=== PATIENT | female | born 1975 | race Hispanic/Latino ===

== ENCOUNTER 2017-04-17 14:56 | Inpatient (IN) | payer SELFPAY ==
[~2017-04-17] VITALS: Ht 165.1 cm; Wt 77.1 kg
[~2017-04-17 14:56] MED LIST: IBUP-2070 PO
[2017-04-17] MEDS ORDERED: IOPAMIDOL-370 75 ML VIAL IV ONE (15:44)
[2017-04-17] MEDS ORDERED: TETANUS/DIPHTHERIA TOXOID [ADULT] 0.5 ML VIAL IM ONE (16:46)
[2017-04-17 17:27] LABS: BASOPHILS % (AUTO) 0.3 % (0.0-5.0); EOSINOPHILS % (AUTO) 2.2 % (0.0-8.0); HEMATOCRIT 28.4 % (36-48); LYMPHOCYTES % (AUTO) 25.2 % (21.0-51.0); MEAN CORPUSCULAR HEMOGLOBIN 29.3 pg (27.0-33.0); MEAN CORPUSCULAR HGB CONC 34.5 g/dL (32.0-36.0); MEAN CORPUSCULAR VOLUME 84.8 fL (79-99); MONOCYTES % (AUTO) 8.4 % (3.0-13.0); NEUTROPHILS % (AUTO) 63.9 % (40.0-77.0); PLATELET COUNT (AUTO) 151 K/uL (130-400); RED BLOOD CELL COUNT(AUTO) 3.35 MIL/uL (4.00-5.50); RED CELL DISTRIBUTION WIDTH 14.4 % (11.0-15.5); WHITE BLOOD COUNT (AUTO) 5.4 K/uL (4.8-10.8)
[2017-04-17 17:28] LABS: APPEARANCE,URINE Clear (CLEAR); BILIRUBIN,URINE Negative (NEGATIVE); COLOR,URINE Dark Yellow (YELLOW); GLUCOSE, URINE (UA) Negative (NEGATIVE); KETONES,URINE Negative (NEGATIVE); LEUKOCYTE ESTERASE ,URINE Moderate (NEGATIVE); NITRATE,URINE Negative (NEGATIVE); OCCULT BLOOD,URINE Negative (NEGATIVE); PH,URINE 5.5 (5.0-8.0); PROTEIN,URINE Negative (NEGATIVE)
[2017-04-17 17:33] LABS: AMPHET/METH SCREEN,URINE NEGATIVE (NEGATIVE); BARBITURATE SCREEN, URINE NEGATIVE (NEGATIVE); BENZODIAZEPINES SCREEN,URINE NEGATIVE (NEGATIVE); CANNABINOID SCREEN,URINE NEGATIVE (NEGATIVE); COCAINE SCREEN,URINE POSITIVE (NEGATIVE); OPIATE SCREEN,URINE NEGATIVE (NEGATIVE); PHENCYCLIDINE SCREEN,URINE NEGATIVE (NEGATIVE)
[2017-04-17 17:36] LABS: BACTERIA,URINE Few /HPF (None Seen); MUCUS,URINE Few LPF (None Seen); RBC,URINE 0-1 /HPF (0-1); SQUAMOUS EPITHELIAL CELL,UR Few /LPF (0-2); TRICHOMONAS,URINE Rare /LPF (None Seen)
[2017-04-17 17:40] LABS: CREATININE 0.7 mg/dL (0.5-1.5); POTASSIUM 3.2 mmol/L (3.5-5.1)
[2017-04-17 17:44] LABS: ALBUMIN 3.2 g/dL (3.5-5.0); BILIRUBIN,TOTAL 0.6 mg/dL (0.2-1.0); TOTAL PROTEIN, SERUM 6.8 g/dL (6.0-8.3)
[2017-04-17] MEDS ORDERED: MORPHINE SULFATE 4 MG/1ML SYG ONE ×2 (17:58→21:43)
[2017-04-17] MEDS ORDERED: ONDANSETRON HCL 4 MG/2 ML VIAL ONE (17:58)
[2017-04-18] MEDS ORDERED: MORPHINE SULFATE 4 MG/1ML SYG ONE ×2 (02:40→07:59)
[2017-04-18 13:06] VITALS: BP 115/71
[2017-04-18] MEDS ORDERED: ACETAMINOPHEN 325 MG TAB PO PRN ×2 (14:45→17:45)
[2017-04-18] MEDS ORDERED: KETOROLAC TROMETHAMINE 30MG/ML ONE (14:52)
[2017-04-18] MEDS: KETOROLAC TROMETHAMINE 30MG/ML IM PRN (15:09)
[2017-04-18 17:30] VITALS: BP 96/67
[2017-04-18] MEDS ORDERED: ONDANSETRON HCL 4 MG/2 ML VIAL IVP PRN (17:45)
[2017-04-18] MEDS: SODIUM CHLORIDE 0.9% 1000ML 1,000 ML IV SCH (18:02)
[2017-04-18 19:00] VITALS: BP 110/59
[2017-04-18] MEDS: MORPHINE SULFATE 4 MG/1ML SYG IVP PRN (20:00)
[2017-04-18 23:00] VITALS: BP 92/55
[2017-04-19] MEDS: MORPHINE SULFATE 4 MG/1ML SYG IVP PRN ×3 (01:05→21:54)
[2017-04-19] MEDS: SODIUM CHLORIDE 0.9% 1000ML 1,000 ML IV SCH ×4 (01:09→19:52)
[2017-04-19 03:00] VITALS: BP 109/67
[2017-04-19] MEDS: KETOROLAC TROMETHAMINE 30MG/ML IM PRN (04:15)
[2017-04-19 07:04] VITALS: BP 118/67
[2017-04-19] MEDS: ZOSYN 3.375GM+NS 50ML 50 ML IV SCH ×2 (09:26→18:01)
[2017-04-19 11:00] VITALS: BP 101/41
[2017-04-19 16:00] VITALS: BP 115/60
[2017-04-19] MEDS ORDERED: OXYCODONE/ACETAMIN 5/325MG TAB PO PRN (17:15)
[2017-04-19 19:53] VITALS: BP 102/58
[2017-04-20 00:15] VITALS: BP 97/54
[2017-04-20] MEDS: ZOSYN 3.375GM+NS 50ML 50 ML IV SCH ×2 (00:57→08:30)
[2017-04-20] MEDS: SODIUM CHLORIDE 0.9% 1000ML 1,000 ML IV SCH (03:05)
[2017-04-20] MEDS: MORPHINE SULFATE 4 MG/1ML SYG IVP PRN ×3 (03:34→12:00)
[2017-04-20 04:37] VITALS: BP 95/54
[2017-04-20 07:48] VITALS: BP 120/66
[2017-04-20 11:50] VITALS: BP 138/91
== END 2017-04-20 13:40 | disposition home or self-care (01) | DRG 563 ==
LOC: EDH 14:56 → EDHIP 14:57 → OBSVTOIN 14:57 → 4BH 04-18 16:55
PROVIDERS: ADMIT Surgery; ATTEND Surgery
DX: S92.315A Nondisplaced fracture of first metatarsal bone, left foot, initial encounter for closed fracture (principal); S01.81XA Laceration without foreign body of other part of head, initial encounter; S80.02XA Contusion of left knee, initial encounter; Z28.21 Immunization not carried out because of patient refusal; X58.XXXA Exposure to other specified factors, initial encounter; Y93.89 Activity, other specified; Y92.488 Other paved roadways as the place of occurrence of the external cause; Y99.8 Other external cause status
CPT/HCPCS: 36415; 70450; 70486; 71260; 72125; 73030; 73221; 73560; 73590; 73630; 73700; 74177; 80053; 80305; 81001; 84703; 85025; 90714; 99291; G0390; G0480; J1885; J2270; J2405; J2543; J7030; Q9967

== ENCOUNTER 2019-05-01 16:20 | Emergency (ER) | payer SELFPAY ==
[2019-05-01] MEDS ORDERED: TETANUS/DIPHTHERIA TOXOID [ADULT] 0.5 ML VIAL IM ONE (16:53)
== END 2019-05-01 17:26 | disposition home or self-care (01) ==
LOC: EDH 16:20
DX: S61.512A Laceration without foreign body of left wrist, initial encounter (principal); S51.812A Laceration without foreign body of left forearm, initial encounter; F32.9 Major depressive disorder, single episode, unspecified; Z72.0 Tobacco use; X83.8XXA Intentional self-harm by other specified means, initial encounter; Y93.89 Activity, other specified; Y92.89 Other specified places as the place of occurrence of the external cause; Y99.8 Other external cause status
CPT/HCPCS: 90471; 90714

== ENCOUNTER 2024-04-05 11:29 | Emergency (ER) | payer BC ==
[~2024-04-05] VITALS: Ht 165.1 cm; Wt 92.1 kg
--- NOTE | 2024-04-05 11:44 | ERN ---
ED Note History of Present Illness Stated Complaint: LAC Chief Complaint: Laceration/Avulsion Time Seen by MD: 11:38 Dictation: PATIENT IS A 49-YEAR-OLD FEMALE HERE WITH HER WITH COMPLAINTS OF A SELF- INFLICTED LACERATION TO THE LEFT MEDIAL FOREARM ONSET WAS ON 04/02 SHE STATES IT THE TIME SHE WAS SUICIDAL HOWEVER THAT IS OVER NOW. STATES SHE IS NOT DEPRESSED SHE IS JUST SCARED AND DID NOT WANT TO GO TO THE HOSPITAL. NEUROVASCULAR CMS INTACT TO THE DISTAL LEFT ARM. THE WOUND IS DOWN TO THE SUBCU TANEOUS AREA, IS GRANULATING BY SECONDARY INTENTION AND UNABLE TO REPAIR AT THIS TIME. PATIENT AND HER WERE MADE AWARE THAT IT IS TOO LATE TO DO ANY REPAIRS. LAST TETANUS SHOT IS UNKNOWN SHE IS NOT A DIABETIC. Allergies: Coded Allergies: No Known Drug Allergies (Unverified Allergy, Unknown, 04/10/16) Home Meds Unable to Obtain Active Prescriptions or Reported Meds Past Medical History History: Not Applicable RN Note Reviewed/Agreed w/PFSH: Yes Review of System Dictation CONSTITUTIONAL: NEGATIVE EXCEPT FOR HPI HEAD/FACE: NEGATIVE EXCEPT FOR HPI EENT: NEGATIVE EXCEPT FOR HPI RESPIRATORY: NEGATIVE EXCEPT FOR HPI GASTROINTESTINAL/ABDOMINAL: NEGATIVE EXCEPT FOR HPI GENITOURINARY: NEGATIVE EXCEPT FOR HPI MUSCULOSKELETAL: NEGATIVE EXCEPT FOR HPI INTEGUMENTARY: NEGATIVE EXCEPT FOR HPI LACERATION TO LEFT MEDIAL FOREARM NEUROLOGICAL/PSYCH: NEGATIVE EXCEPT FOR HPI HEMATOLOGIC/LYMPHATIC: NEGATIVE EXCEPT FOR HPI ALL SYSTEMS NEGATIVE, EXCEPT NOTED ABOVE. 13 POINT REVIEW OF SYSTEMS ASSESSED AND ALL NEGATIVE EXCEPT FOR ABOVE. Physical Exam Dictation VITAL SIGNS REVIEWED GENERAL APPEARANCE: ALERT, ORIENTED X 3, MILD ACUTE DISTRESS, WELL DEVELOPED, NOURISHED. HEAD AND FACE: NON-TRAUMATIC. EYES: PERRL, PINK CONJUNCTIVAS, EYELID NO TRAUMA, ANTERIOR CHAMBER WITH ARCUS SENILIS. EARS: PINNAS INTACT AND NO SIGNS OF TRAUMA OR ERYTHEMA EAR CANALS CLEAR AND NO DISCHARGE TM NO ERYTHEMA NOSE: NO DISCHARGE, NO BLEEDING. OROPHARYNX: MOUTH NORMAL, TONGUE PINK, PHARYNX CLEAR,NO ERYTHEMA, TONSILS NO EXUDATES, NO ABSCESSES NOTED, MUCOUS MEMBRANE MOIST NECK: SUPPLE, NON-TENDER, NO THYROMEGALY, NO MASSES, NO JVD, NO BRUITS BREAST:DEFERRED CHEST:NO TENDERNESS, NO CREPITUS, NO PARADOXICAL MOVEMENT, NO RETRACTIONS LUNGS:CLEAR, WELL-VENTILATED, SYMMETRIC, NO RALES, NO WHEEZING, NO RHONCHI, NO STRIDOR, GOOD BREATH SOUNDS BILATERALLY HEART: REGULAR RATE, REGULAR RHYTHM, NO MURMUR, NO GALLOPS VASCULAR: NO PERIPHERAL EDEMA, ABDOMEN: SOFT, POSITIVE BOWEL S SHIT MIN RECTAL: DEFERRED GENITAL: DEFERRED NEUROLOGICAL: NORMAL SPEECH, MOTOR FUNCTION INTACT, SENSORY FUNCTION INTACT MUSCULOSKELETAL: NECK NONTENDER, FULL RANGE OF MOTION, BACK NONTENDER, FULL RANGE OF MOTION, EXTREMITIES: DISTAL NEUROVASCULAR CMS INTACT LEFT ARM. SKIN: COLOR PINK, 7.5 CM LACERATION TO LEFT MEDIAL FOREARM. WOUND BED IS DRY EDGES HER CURLING AND GRANULATING BY SECONDARY INTENTION LYMPHATIC: DEFERRED Results (Laboratory/Radiology) Labs Reviewed?: Yes ED Course ED Course Orders Procedure Category Date Status Time Hydrocodone/Apap PHA 04/05/24 Verified 5/325 (Ione 5/325mg) 12:00 Tetanus,Diphtheria PHA 04/05/24 Verified Tox [Adult] (Diphther 12:00 Clindamycin 150mg Cap PHA 04/05/24 Verified (Cleocin 150mg Cap 12:00 DX & DISP Departure Condition: Stable Scripts Unable to Obtain Active Prescriptions or Reported Meds Referrals: MAGDALENA SALAZAR (PCP) HARINI LAURA NP Apr 05, 2024 11:44
[2024-04-05 11:50] VITALS: BP 164/81; PULSE 87; RESP 20; TEMP 97.8; O2SAT 98
[2024-04-05] MEDS ORDERED: HYDROcodone/APAP 5/325 1 TAB TABLET PO ONE (12:00)
[2024-04-05] MEDS ORDERED: teTANUS/diphthERIA TOXOID [ADULT] 0.5 ML VIAL IM ONE (12:00)
[2024-04-05] MEDS ORDERED: CLINDAMYCIN 150 MG CAP PO ONE (12:00)
== END 2024-04-05 15:43 | disposition left against medical advice (07) ==
LOC: EDH 11:29
DX: S51.812A Laceration without foreign body of left forearm, initial encounter (principal); X78.9XXA Intentional self-harm by unspecified sharp object, initial encounter; Y93.89 Activity, other specified; Y92.89 Other specified places as the place of occurrence of the external cause; Y99.8 Other external cause status
CPT/HCPCS: 99281